=== PATIENT | male | born 2000 | race Two or more races ===

== ENCOUNTER 2019-08-23 19:31 | Emergency (ER) | payer BC, MEDICAID, OTHER, SELFPAY ==
[~2019-08-23] VITALS: Ht 160 cm; Wt 82.2 kg
[2019-08-23 19:33] VITALS: BP 136/69
[2019-08-23] MEDS ORDERED: KETOROLAC 30 MG/1 ML ONE (19:53)
--- NOTE | 2019-08-23 19:59 | NUR ---
PT MEDICATED PER EMAR. 5 RIGHTS ADDRESSED
[2019-08-23] MEDS ORDERED: KETOROLAC 30 MG/1 ML IM ONE (20:00)
--- NOTE | 2019-08-23 20:00 | NUR ---
C COLLAR APPLIED. AWAITING XRAYS AT THIS TIME
--- NOTE | 2019-08-23 21:34 | NUR ---
Patient/Caregiver given discharge instructions and they have confirmed that they understand the instructions. Patient ambulatory with steady gait.
== END 2019-08-23 21:35 ==
LOC: ED 21:29
DX: S39.012A Strain of muscle, fascia and tendon of lower back, initial encounter (principal); S29.012A Strain of muscle and tendon of back wall of thorax, initial encounter; S16.1XXA Strain of muscle, fascia and tendon at neck level, initial encounter; V49.49XA Driver injured in collision with other motor vehicles in traffic accident, initial encounter; Y93.89 Activity, other specified; Y92.89 Other specified places as the place of occurrence of the external cause; Y99.8 Other external cause status
CPT/HCPCS: 72020; 72050; 72072; 72110; 96372; 99283; J1885